=== PATIENT | male | born 1995 ===

== ENCOUNTER 2016-11-19 13:42 | Emergency (ER) | payer OTHER ==
[2016-11-19 13:55] VITALS: BP 133/72; PULSE 69; RESP 18; TEMP 98; O2SAT 98; BMI 22.3
--- NOTE | 2016-11-19 14:22 | C.PDOC ---
History Of Present Illness 21 year old male presents to ED for evaluation of exacerbation of pain to right lower leg for the past several months. Pt is s/p holguin splints early 2016. Pt states he rested but now recurs with high impact sports, and only when landing. Pt is currently asymptomatic. No swelling. Pt does not stretch after exercising. No other complaints. CO EXAC PAIN R LOWER LEG X SEV MONTHS. S/P HOLGUIN SPLINTS EARLY 2016. RESTED BUT NOW RECURS W HIGH IMPACT SPORTS. ONLY W LANDING . CURRENTLY ASYMPT. NO SWELL. PS DOES NOT STRETCH AFTER EXERCISING EXAM EXT RLE FULL ROM WO DIFF; MIN TEND ABOVE B/L MALL. NO SWELL. Time Seen by Provider: 11/19/16 14:02 History Per: Patient History/Exam Limitations: no limitations Onset/Duration Of Symptoms: Days (several months) Current Symptoms Are (Timing): Still Present Recent travel outside of the [place]: No Additional History Per: Patient Past Medical History Reviewed: Historical Data, Nursing Documentation, Vital Signs Vital Signs: Last Vital Signs Temp 98.0 F 11/19/16 13:54 Pulse 69 11/19/16 13:54 Resp 18 11/19/16 13:54 BP 133/72 11/19/16 13:54 Pulse Ox 98 11/19/16 15:29 - Medical History PMH: No Chronic Diseases - [facility] Procedures APPLICATION OF SPLINT (09/13/13) Family History: States: No Known Family Hx - Social History Hx Tobacco Use: No Hx Alcohol Use: No Hx Substance Use: No - Immunization History Hx Tetanus Toxoid Vaccination: No Hx Influenza Vaccination: No Hx Pneumococcal Vaccination: No Review Of Systems Except As Marked, All Systems Reviewed And Found Negative. Constitutional: Negative for: Fever, Chills Musculoskeletal: Positive for: Leg Pain (right lower leg) Skin: Negative for: Rash Neurological: Negative for: Weakness, Numbness Physical Exam - Physical Exam Appears: Non-toxic, No Acute Distress Skin: Normal Color, Warm, Dry Head: Atraumatic, Normacephalic Extremity: Normal ROM (FROM of right lower extremity without difficulty), Tenderness (Right lower extremity: minimal tenderness above bilateral malleolus ), No Calf Tenderness, Capillary Refill (<2 sec.), No Deformity, No Swelling Extremity: Bilateral: Normal Color And Temperature, Normal ROM Pulses: Left Dorsalis Pedis: Normal, Right Dorsalis Pedis: Normal Neurological/Psych: Oriented x3, Normal Speech, Normal Motor, Normal Sensation ED Course And Treatment O2 Sat by Pulse Oximetry: 98 (on RA) Pulse Ox Interpretation: Normal Disposition Counseled Patient/Family Regarding: Diagnosis, Need For Followup - Disposition Referrals: [facility] [Outside] [facility] [Outside] Disposition: HOME/ ROUTINE Disposition Time: 14:19 Condition: GOOD Additional Instructions: STRETCHING EXERCISES RECOMMENDED. HUI MERRITT DIRECTED FOR PAIN NEEDED Instructions: Holguin Splints (ED) - Clinical Impression Clinical Impression: Holguin splint - Scribe Statement The provider has reviewed the documentation as recorded by the Scribe Himanshu Lam All medical record entries made by the Scribe were at my direction and personally dictated by me. I have reviewed the chart and agree that the record accurately reflects my personal performance of the history, physical exam, medical decision making, and the department course for this patient. I have also personally directed, reviewed, and agree with the discharge instructions and disposition.
== END 2016-11-19 14:23 | disposition home or self-care (01) ==
LOC: C.ER 13:42
DX: Z47.89 Encounter for other orthopedic aftercare (principal)